=== PATIENT | male | born 1975 | race Caucasian/White ===

== ENCOUNTER → 2019-02-09 | Outpatient (CLI) | payer BC ==
--- NOTE | 2019-02-09 20:16 | CONS ---
CONSULTATION DATE OF SERVICE: 02/09/2019 This patient is a 43-year-old gentleman who has been evaluated in the sleep center for possible obstructive sleep apnea-hypopnea syndrome. HISTORY OF PRESENT ILLNESS/SLEEP-WAKE EVALUATION: Patient's usual sleep schedule on working days is from 9 p.m. to 2:45 a.m., on weekends from 8 or 9 p.m. until 8 or 9 a.m. No problems with falling asleep, although he has a TV in the bedroom. He usually sleeps on the side position. According to his , he has severe snoring and witnessed episodes of stopped breathing during sleep. The patient wakes up from sleep up to 4 times. Occasionally he wakes up with a dry mouth. On the following day, the patient feels sleepy, falling asleep during the day. [place] Sleepiness Scale is significantly increased at 14. Sometimes he has problems with memory and concentration. PAST MEDICAL HISTORY: Positive for episodes of cardiac arrhythmia. Cardiac cath evaluation showed some abnormalities in the position of the patient's cardiac valves, according to him. MEDICATIONS: None. PAST SURGICAL HISTORY: Cardiac cath 4 years ago. SOCIAL HISTORY: Negative for smoking. Alcohol consumption occasional. FAMILY HISTORY: Hypertension, epilepsy, stroke, snoring, cancer, diabetes. REVIEW OF SYSTEMS: Awakenings from sleep, feeling sleepy during the day. [place] Sleepiness Scale significantly increased at 14. No history of hypnagogic hallucinations, sleep paralysis or cataplexy. PHYSICAL EXAMINATION: GENERAL: A pleasant gentleman without distress. VITAL SIGNS: BP 152/91, HR 70, RR 16, height 5 feet 11 inches, weight 261.4 pounds, body mass index 36.4, oxygen saturation at room air 95%. HEENT: PERRLA, EOMI. Evaluation of oropharynx showed tongue protrudes midline. Extremely low position of soft palate. Mallampati IV. Restriction of nasal breathing, possibly related to septum deviation. NECK: Supple. No JVD. Thyroid is not palpable. Wide neck; 19 inches in circumference. LUNGS: Clear to percussion and to auscultation. Good air exchange. No wheezing or rhonchi. HEART: S1, S2 regular. No murmurs, gallops or rubs. ABDOMEN: Slightly obese. EXTREMITIES: One plus bilateral ankle edema. IMPRESSION: 1. Snoring, witnessed episodes of stopped breathing during sleep, extremely low position of soft palate, wide neck, sleepiness, [place] Sleepiness Scale of 14; obstructive sleep apnea-hypopnea syndrome. 2. Hypertension in the office. 3. One plus swelling of ankles. 4. 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 5. History of cardiac arrhythmia. 6. Possibly deviated nasal septum. PLAN: 1. Polysomnography for evaluation of patient's breathing during sleep. 2. CPAP/BiPAP titration if sleep study confirms obstructive sleep apnea-hypopnea syndrome. 3. Preferable position during sleep on the side. 4. No driving if patient feels any sleepiness. 5. I will see patient for follow up visit to explain results of testing and following plan. Thank you very much for referring this patient for consultation. Sincerely, Harsh Alexandre MD, PhD, FAASM Diplomat of [place] [employer] [place] [employer] Installer of [facility] [place] MMODL / IJN: [id number] /
== END ==
LOC: SLEEP 13:25
PROVIDERS: ATTEND Internal Medicine
DX: G47.33 Obstructive sleep apnea (adult) (pediatric) (principal); I10 Essential (primary) hypertension; Q23.8 Other congenital malformations of aortic and mitral valves; E66.9 Obesity, unspecified; M25.472 Effusion, left ankle; M25.471 Effusion, right ankle; Z95.5 Presence of coronary angioplasty implant and graft; Z86.79 Personal history of other diseases of the circulatory system; Z68.36 Body mass index [BMI] 36.0-36.9, adult
CPT/HCPCS: 99211

== ENCOUNTER → 2019-06-29 | Outpatient (CLI) | payer BC ==
--- NOTE | 2019-06-29 17:59 | PN ---
PROGRESS NOTE DATE OF SERVICE: 06/29/2019. 44-year-old gentleman who has been followed in Sleep Center for treatment of obstructive sleep apnea-hypopnea syndrome. Recently patient has been diagnosed with severe obstructive sleep apnea, had CPAP titration subsequently was started on treatment with CPAP. Today is his first visit after he was started using equipment. The patient is able to use equipment every night. Sometimes feels the pressure is high but otherwise is able to use equipment every night for the whole night. He feels better while he is using CPAP equipment. He sleeps better and he feels better during the day. His sleepiness significantly less now than before, although [place] Sleepiness Scale still increased to 14 today. Reading from his CPAP unit showed usage 27 out of 30 days and 23 days more than 4 hours with average usage of 5 hours and 37 minutes. CPAP pressure is 13 cm of water. Leak is from 11-32 with average range 24, which is acceptable for a full-face mask. Apnea- hypopnea index reading 1.5, which is in normal range. MEDICATIONS: None. PHYSICAL EXAM: Patient in no distress. BP 148/84, HR 70, RR 16, weight 257, temp 97.4, oxygen saturation at room air 97% to oropharynx low position of soft palate, Mallampati 3. Neck Supple, no JVD. Thyroid is not palpable. LUNGS Clear to percussion and to auscultation. Good air exchange. No wheezing or rhonchi. HEART S1, S2 regular. No murmurs, gallops, or rubs. ABDOMEN: Slightly obese. Soft and nontender. Bowel sounds are present. No organomegaly appreciated. EXTREMITIES No clubbing or cyanosis. LEATHER POLISHER Awake, alert, and oriented X3. Cranial nerves 2 to 7 intact. There is no fasciculation or atrophy. noted. No focal deficits observed. IMPRESSION: 1. Severe obstructive sleep apnea-hypopnea syndrome, on control with CPAP. The patient demonstrated good compliance with treatment benefitting from treatment. 2. Hypertension. 3. History of cardiac arrhythmia. 4. History of genetic abnormalities of cardiac valve according to patient. PLAN: 1. Patient will continue to use CPAP equipment every night for the whole night. 2. Losing weight. 3. Sleep hygiene with regular time in bed for at least 8 hours. 4. No driving if feeling sleepiness. 5. I will maintain all necessary prescriptions for CPAP supplies including mask, tube, filters. Thank you very much for allowing me to participate in management of your patient. Sincerely, Harsh Alexandre MD, PhD, FAASM Diplomat of [place] [employer] [place] [employer] Manager Domestic of [facility] [place] DIVYA / MICAH: [id number] /
== END | disposition home or self-care (01) ==
LOC: SLEEP 16:37
PROVIDERS: ATTEND Internal Medicine
DX: G47.33 Obstructive sleep apnea (adult) (pediatric) (principal); I10 Essential (primary) hypertension; Z86.79 Personal history of other diseases of the circulatory system; Z99.89 Dependence on other enabling machines and devices

== ENCOUNTER 2020-04-28 17:08 | Emergency (ER) | payer BC ==
[2020-04-28 17:12] VITALS: TEMP 98.2
[2020-04-28] MEDS ORDERED: methylPREDNISolone SOD SUCCI 125 MG/2 ML VIAL IM ONE (17:43)
[2020-04-28] MEDS ORDERED: DIAZEPAM 5 MG/ML 2 ML INJ IM ONE (17:43)
[2020-04-28] MEDS ORDERED: KETOROLAC 60 MG/2 ML VIAL IM STA (17:43)
--- NOTE | 2020-04-28 18:18 | CT ---
EXAMINATION TYPE: CT cervical spine wo con DATE OF EXAM: 04/28/2020 COMPARISON: None HISTORY: neck pain, no injury CT DLP: 811.4 mGycm Automated exposure control for dose reduction was used. Multiple axial sections were obtained from the skull base to T1 vertebra without contrast. Cervical vertebra have normal alignment. There is anterior spurring at C5-6. Posterior elements are i ntact. Facet joints appear intact. The skull base is intact. There is normal aeration of the temporal bones. IMPRESSION: There is some spondylosis at C5-6. No fracture seen. No significant disc space narrowing. Posterior d isc bulging at C5-6.
--- NOTE | 2020-04-28 18:21 | XR ---
EXAMINATION TYPE: XR shoulder complete LT DATE OF EXAM: 04/28/2020 COMPARISON: NONE HISTORY: Neck pain TECHNIQUE: 3 views FINDINGS: I see no fracture nor dislocation. Joint spaces are normal. There are no pathologic calcifi cations. IMPRESSION: Negative left shoulder exam.
--- NOTE | 2020-04-28 18:35 | ED ---
Neck Injury/Pain HPI - General Chief Complaint: Neck Pain/Injury Stated Complaint: NECK PAIN GOING DOWN ARM Time Seen by Provider: 04/28/20 17:17 Source: RN notes reviewed, old records reviewed Mode of arrival: ambulatory Limitations: no limitations - History of Present Illness Initial Comments: Patient is a 45-year-old female who presents emergency department today for concern for left-sided neck pain with radiation down the left arm with certain movements. Patient states that he has pain with lifting his head up or turning his head from left to right. He states he does not have any trauma or known injury to his neck. He states is been taking muscle relaxers and anti- inflammatory medication with no significant relief of his symptoms. He denies any headache. He denies any chest pain or shortness of breath associated with this. He does report the pain all seems to be reproducible with certain positions of the head and neck and arm.. - Related Data Previous Rx's Medication Instructions Recorded Acetaminophen with Codeine 1 tab PO Q6H PRN 3 Days #12 tab 04/28/20 [Tylenol w/codeine #3] Diazepam [Valium] 5 mg PO Q8H PRN 3 Days #9 tab 04/28/20 Ibuprofen [Motrin] 600 mg PO Q8HR PRN #20 tab 04/28/20 dexAMETHasone [Dexamethasone] 0.75 mg PO DAILY #12 tab 04/28/20 Allergies Allergy/AdvReac Type Severity Reaction Status Date / Time No Known Allergies Allergy Verified 04/28/20 17:11 Review of Systems ROS Statement: Those systems with pertinent positive or pertinent negative responses have been documented in the HPI. ROS Other: All systems not noted in ROS Statement are negative. Past Medical History Past Medical History: No Reported History History of Any Multi-Drug Resistant Organisms: None Reported Past Surgical History: No Surgical Hx Reported Past Psychological History: No Psychological Hx Reported Smoking Status: Never smoker Past Alcohol Use History: None Reported Past Drug Use History: None Reported General Exam - General Exam Comments Initial Comments: 45-year-old male. Alert and oriented 3. No significant distress. Limitations: no limitations General appearance: alert, in no apparent distress Head exam: Present: atraumatic, normocephalic, normal inspection Eye exam: Present: normal appearance, PERRL, EOMI. Absent: scleral icterus, conjunctival injection, periorbital swelling ENT exam: Present: normal exam, mucous membranes moist Neck exam: Present: normal inspection. Absent: tenderness, meningismus, full ROM (Patient reports pain with turning the head to the right and stretching the sternocleidomastoid muscle. Patient reports pinching sensation with looking up to the mid posterior neck.), lymphadenopathy Respiratory exam: Present: normal lung sounds bilaterally. Absent: respiratory distress, wheezes, rales, rhonchi, stridor Cardiovascular Exam: Present: regular rate, normal rhythm, normal heart sounds. Absent: systolic murmur, diastolic murmur, rubs, gallop, clicks GI/Abdominal exam: Present: soft, normal bowel sounds. Absent: distended, tenderness, guarding, rebound, rigid Left Shoulder Exam: Present: normal inspection, tenderness (Patient reports tenderness over the AC joint and deltoid anterior deltoid). Absent: full ROM (Patient reports reproducible pain into the shoulder and neck with abducting the arm) Elbow exam: Present: normal inspection, full ROM Forearm Wrist exam: Present: normal inspection, full ROM Hand Wrist exam: Present: normal inspection, full ROM Neuro motor exam: Present: wrist extension intact, thumb opposition intact, thumb IP flexion intact, thumb adduction intact, fingers 2-5 abduction intact Vascular: Present: normal capillary refill Back exam: Present: normal inspection Neurological exam: Present: alert, oriented X3, CN II-XII intact Psychiatric exam: Present: normal affect, normal mood Skin exam: Present: warm, dry, intact, normal color Course Vital Signs 04/28/20 04/28/20 17:09 19:04 Temperature 98.2 F Pulse Rate 62 99 Respiratory 20 18 Rate Blood Pressure 159/98 152/98 O2 Sat by Pulse 97 99 Oximetry Medical Decision Making - Medical Decision Making Patient is a 45-year-old female who presents emergency room today with complaints of neck pain with radiation down the left arm worse with certain positions or moving the head or neck for the past week. Taking [id number] medications a muscle relaxers with no significant relief. Patient had computed tomography scan of the neck which shows evidence of disc herniation and on C5- C6. Discusses explains the distribution of patient's pain on deltoid and tr icep. Shoulder x-ray was reviewed and negative for acute process. Patient was given IM following Medrol value and Toradol. Discussed that certainly Patient with a short course of pain medication and advised following up with orthopedic channel marketing specialist for concern for nerve compression and radiculopathy symptoms. Patient is agreeable to treatment plan. Patient requests a note for work so he can follow-up with a chiropractor tomorrow as well. 04/28/20 18:34 EKG shows normal sinus rhythm incomplete right bundle-branch block. Ventricular rate of 70 bpm. 152 ms.. QRS duration is 100 ms. QT QTc is 394/425 ms. - Radiology Data Radiology results: report reviewed CT of C-spine shows spondylosis of C5-C6. No fracture. No significant disc space narrowing. Posterior disc bulging at C5-C6. Negative left shoulder exam. Disposition Clinical Impression: Herniation of intervertebral disc at C5-C6 level, Radiculopathy affecting upper extremity Disposition: HOME SELF-CARE Condition: Good Additional Instructions: Recommend following up with orthopedic channel marketing specialist. Using a ring between heat and ice to help with pain relief. Follow-up with PCP. Return to emergency department if any alarming signs or symptoms occur. Prescriptions: dexAMETHasone [Dexamethasone] 0.75 mg PO DAILY #12 tab Ibuprofen [Motrin] 600 mg PO Q8HR PRN #20 tab PRN Reason: Pain Acetaminophen with Codeine [Tylenol w/codeine #3] 1 tab PO Q6H PRN 3 Days #12 tab PRN Reason: Pain Diazepam [Valium] 5 mg PO Q8H PRN 3 Days #9 tab PRN Reason: Muscle Spasm Is patient prescribed a controlled substance at d/c from ED?: Yes If prescribed controlled substance>3 days was MAPS reviewed?: Prescribed <3 Days If opioid is for acute pain is fill amount 7 days or less?: Yes If Rx opioid, was Start Talking consent form obtained?: Yes Referrals: Estelita Monae DO [Primary Care Provider] - 1-2 days Presley Pabon DO [Doctor of Osteopathic Medicine] - 1-2 days Time of Disposition: 19:04
[2020-04-28 19:06] VITALS: BP 152/98; PULSE 99; RESP 18
== END 2020-04-28 19:16 | disposition home or self-care (01) ==
LOC: EC 17:08
DX: M50.122 Cervical disc disorder at C5-C6 level with radiculopathy (principal); I45.10 Unspecified right bundle-branch block
CPT/HCPCS: 73030; 72125; 99284; 96372 ×3; J2930; J3360; J1885

== ENCOUNTER → 2023-04-23 | Outpatient (CLI) | payer BC ==
--- NOTE | 2023-04-23 17:29 | CA ---
Transthoracic Echo Report Name: Stoney Spencer Age: 48 Gender: M : 1975 Exam Date: 04/23/2023 13:03 Exam Location: [facility] Ht (in): 71 Wt (lb): 265 Ordering Physician: Estelita Monae DO Attending/Referring Phys: Suad [place] [facility] Multiple P[employer] Press Operator Mckayla Paz RDCS Procedure CPT: Indications: I10 ESSENTIAL (PRIMARY) HYPERTENSION Cardiac Hx: Technical Quality: Fair Contrast 1: Total Dose (mL): Contrast 2: Total Dose (mL): MEASUREMENTS (Male / Female) Normal Values 2D ECHO LV Diastolic Diameter PLAX 5.1 cm 4.2 - 5.9 / 3.9 - 5.3 cm LV Systolic Diameter PLAX 3.4 cm IVS Diastolic Thickness 1.4 cm 0.6 - 1.0 / 0.6 - 0.9 cm LVPW Diastolic Thickness 1.4 cm 0.6 - 1.0 / 0.6 - 0.9 cm LV Relative Wall Thickness 0.6 RV Internal Dim ED PLAX 2.4 cm M-MODE Aortic Root Diameter MM 4.0 cm LA Systolic Diameter MM 3.6 cm LA Ao Ratio MM 0.9 AV Cusp Separation MM 0.0 cm DOPPLER AV Peak Velocity 128.6 cm/s AV Peak Gradient 6.6 mmHg AV Mean Velocity 98.0 cm/s AV Mean Gradient 4.1 mmHg AV Velocity Time Integral 25.3 cm LVOT Peak Velocity 101.1 cm/s LVOT Peak Gradient 4.1 mmHg LVOT Velocity Time Integral 23.7 cm Mitral E Point Velocity 81.0 cm/s Mitral A Point Velocity 77.3 cm/s Mitral E to A Ratio 1.0 MV Deceleration Time 250.5 ms MV E' Velocity 8.9 cm/s Mitral E to MV E' Ratio 9.1 TR Peak Velocity 272.5 cm/s TR Peak Gradient 29.7 mmHg Right Ventricular Systolic Press 40.3 mmHg FINDINGS Left Ventricle Moderately increased left ventricular wall thickness. Left ventricular cavity size normal. Normal left ventricular systolic function with no obvious regional wall motion abnormalities. Left ventricular ejection fraction is estimated at 55-60 %. Right Ventricle Normal right ventricular size and function. Right Atrium Normal right atrial size. Left Atrium Normal left atrial size. Mitral Valve Structurally normal mitral valve. No mitral stenosis, regurgitation or prolapse. Aortic Valve No aortic valve stenosis or regurgitation. Tricuspid Valve Structurally normal tricuspid valve. Mild tricuspid regurgitation. Pulmonic Valve Pulmonic valve not well visualized. Pericardium No pericardial effusion. Aorta Normal size aortic root and proximal ascending aorta. CONCLUSIONS 1. Normal left ventricle size and systolic function with moderate left ventricular hypertrophy 2. Mild tricuspid regurgitation with no evidence of pulmonary hypertension Previewed by: Dr. Dipika Brandon MD (Electronically Signed) Final Date: 23 April 2023 17:28
== END | disposition home or self-care (01) ==
LOC: RADECHMAIN 12:56
PROVIDERS: ATTEND Family Medicine
DX: I36.1 Nonrheumatic tricuspid (valve) insufficiency (principal); I10 Essential (primary) hypertension
CPT/HCPCS: 93306

== ENCOUNTER → 2024-09-01 | Outpatient (CLI) | payer BC ==
--- NOTE | 2024-09-01 16:18 | US ---
EXAMINATION TYPE: US venous doppler duplex LE BI; LOWER EXTREMITY VENOUS INSUFFICIENCY DATE OF EXAM: 09/01/2024 COMPARISON: NONE CLINICAL INDICATION: Male, 49 years old with history of I87.2 VENOUS INSUFFICIENCY (CHRONIC) (PERIPHE RAL); non healing wound rt [place] TECHNIQUE: Grayscale color Doppler and spectral Doppler imaging of the lower extremity veins. FINDINGS: SIDE PERFORMED: bilat 1) Color flow is present and patency is documented in the following vessels. No DVT or SVT is noted . Common Femoral Vein Deep Femoral Vein Femoral Vein Popliteal Vein Proximal Calf Veins Greater Saph Vein Upper Small Saph Vein 2) There is venous reflux noted at the following venous levels: no significant venous insufficiency Color Doppler imaging shows patency of the vessels. Spectral waveforms are within normal limits. IMPRESSION: No evidence for venous insufficiency/reflux. [facility], , 09/01/2024 4:16 PM
== END | disposition home or self-care (01) ==
LOC: RADUSWWP 14:39
PROVIDERS: ATTEND Family Medicine
DX: I87.2 Venous insufficiency (chronic) (peripheral) (principal)
CPT/HCPCS: 93970